=== PATIENT | female | born 1940 | race Caucasian/White ===

== ENCOUNTER → 2023-08-30 12:52 | Outpatient (REF) | payer OTHER, SELFPAY | LOC: RAD 12:52 | PROVIDERS: ATTENDING PHYSICIAN Nurse Practitioner Family; REFERRING PHYSICIAN Nurse Practitioner Family | DX: M79.661 Pain in right lower leg (principal) | CPT/HCPCS: 73610; 93971 ==

== ENCOUNTER → 2024-12-06 11:56 | Outpatient (REF) | payer OTHER, SELFPAY | LOC: RAD 11:56 | PROVIDERS: ATTENDING PHYSICIAN Podiatrist; FAMILY PHYSICIAN Physician Assistant | DX: M12.9 Arthropathy, unspecified (principal) | CPT/HCPCS: 73630 ==